=== PATIENT | female | born 1995 | race Caucasian/White ===

== ENCOUNTER 2019-01-31 07:24 | Emergency (ER) | payer MEDICAID ==
[~2019-01-31] VITALS: Ht 180.3 cm; Wt 95.3 kg
[2019-01-31 07:32] VITALS: BP 150/100
== END 2019-01-31 08:03 | disposition home or self-care (01) ==
LOC: ED 07:48
DX: J03.90 Acute tonsillitis, unspecified (principal); J01.00 Acute maxillary sinusitis, unspecified; J00 Acute nasopharyngitis [common cold]
CPT/HCPCS: 99283